=== PATIENT | male | born 1975 | race Caucasian/White ===

== ENCOUNTER 2016-08-12 10:42 | Emergency (ER) | payer OTHER ==
[2016-08-12] MEDS ORDERED: SODIUM CHLORIDE 0.9% 1,000 ML IV STA (11:33)
[2016-08-12] MEDS ORDERED: ONDANSETRON 4 MG/2 ML VIAL IVP STA (11:33)
[2016-08-12] MEDS ORDERED: KETOROLAC 30 MG/ML 1 ML VIAL IVP STA (11:33)
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
[2016-08-12 12:09] LABS: Appearance,Urine Clear (Clear); Bilirubin,Urine Negative (Negative); Glucose,Urine (UA) Negative (Negative); Ketones,Urine Negative (Negative); Leukocyte Esterase,Urine Negative (Negative); Nitrite,Urine Negative (Negative); PH, Urine 5.5 (5.0-8.0); Protein,Urine Negative (Negative); Specific Gravity,Urine 1.005 (1.001-1.035); UA Billing (MACRO vs. MICRO) CHEM; Urobilinogen,Urine <2.0 mg/dL (<2.0)
[2016-08-12 12:10] LABS: Basophils % (A) 0 %; CH 32.2; CHCM 33.5; Eosinophils # (A) 0.3 k/uL (0-0.7); Eosinophils % (A) 4 %; HCT 45.9 % (39.0-53.0); HDW 2.82; Luc # (Auto) 0.18; Luc % (Auto) 2; Lymphocytes # (A) 1.5 k/uL (1.0-4.8); Lymphocytes % (A) 18 %; MCH 31.5 pg (25.0-35.0); MCHC 32.6 g/dL (31.0-37.0); MCV 96.7 fL (80.0-100.0); Mean Platelet Volume 7.6; Monocytes # (A) 0.6 k/uL (0-1.0); Monocytes % (A) 7 %; Neutrophils # (A) 6.1 k/uL (1.3-7.7); Neutrophils % (A) 70 %; RBC 4.75 m/uL (4.30-5.90); RDW 14.1 % (11.5-15.5); WBC 8.7 k/uL (3.8-10.6); WBC (Perox) 8.79
[2016-08-12 12:34] LABS: ALT 24 U/L (21-72); AST 17 U/L (17-59); Alkaline Phosphatase 95 U/L (38-126); Amylase 101 U/L (30-110); Anion Gap 9 mmol/L; Blood Urea Nitrogen 17 mg/dL (9-20); Calcium 9.3 mg/dL (8.4-10.2); Carbon Dioxide 26 mmol/L (22-30); Chloride 104 mmol/L (98-107); Glucose 107 mg/dL (74-99); Non-African American GFR(MDRD) >60 (>60 ml/min/1.73 sqM); Potassium 4.9 mmol/L (3.5-5.1); Sodium 139 mmol/L (137-145); Total Bilirubin 0.3 mg/dL (0.2-1.3); Total Protein 6.9 g/dL (6.3-8.2)
--- NOTE | 2016-08-12 12:46 | XR ---
EXAMINATION TYPE: XR KUB DATE OF EXAM: 08/12/2016 12:36 PM CLINICAL DATA: 41-year-old male with back pain and diarrhea, [facility] COMPARISON: 07/27/2014 FINDINGS: Lung bases are clear. No evidence for free intraperitoneal air. There are colonic air-fluid levels and likely some central small bowel air-fluid levels as well. Mild overall stool burden. No abnormal bowel dilatation. IMPRESSION: 1. Colonic air-fluid levels and likely some central small bowel air-fluid levels as well. Findings romero ggests generalized ileus or enteritis. 2.No evidence of bowel obstruction or free intraperitoneal air.
[2016-08-12 13:08] VITALS: BP 118/72; PULSE 62; RESP 16; TEMP 97.5
== END 2016-08-12 13:10 | disposition home or self-care (01) ==
LOC: EC 10:42
DX: R10.9 Unspecified abdominal pain (principal); M54.9 Dorsalgia, unspecified; Z87.442 Personal history of urinary calculi; F17.200 Nicotine dependence, unspecified, uncomplicated; Z88.8 Allergy status to other drugs, medicaments and biological substances
CPT/HCPCS: 36415; 80053; 82150; 83690; 85025; 81003; 87086; 74000; 99284; 96374; 96375; 96361; J2405; J1885

== ENCOUNTER 2017-02-11 07:33 | Emergency (ER) | payer OTHER ==
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
[2017-02-11 12:32] VITALS: BP 116/74
[2017-02-11 13:12] VITALS: PULSE 76; RESP 16; TEMP 97.2
== END 2017-02-11 13:12 | disposition home or self-care (01) ==
LOC: EC 07:33
DX: F11.10 Opioid abuse, uncomplicated (principal); G89.29 Other chronic pain; M25.511 Pain in right shoulder; F17.200 Nicotine dependence, unspecified, uncomplicated; Z88.8 Allergy status to other drugs, medicaments and biological substances
CPT/HCPCS: 99284